=== PATIENT | male | born 1980 | race Caucasian/White ===

== ENCOUNTER 2020-01-02 14:34 | Emergency (ER) | payer OTHER ==
[~2020-01-02] VITALS: Ht 182.9 cm; Wt 108.9 kg
--- OUTSIDE RECORDS SUMMARY | 2020-01-02 14:36 | XMS REPORT | Summary of Care ---
Author Author [facility] - Health Organization [facility] - Health Address Unknown Phone Unavailable Care Team Providers Care Hand Coremaker Name Role Phone Jose Francisco Harper MD PCP Reason for Visit * Reason Comments Refill Request Encounter Details Care Team Description Date Type Department Jose Francisco Harper MD [address] [place] [address] [phone] Refill Request 10/03/[address] [phone] Allergies No Known Allergiesdocumented as of this encounter (statuses as of 10/04/2019) Medications End Date Status Medication Sig Dispensed Refills Start Date Active anastrozole 1 mg tablet TK 09/12 T PO 2 3 TIMES A WK 7 Active cadexomer iodine 0.9 % Apply to 40 g 1 gelIndications: Skin wound daily 8 ulcer of left foot, limited to breakdown of skin, Callus of foot, Pain of left lower extremity Active triamcinolone acetonide Apply to 30 g 0 0.1 % creamIndications: area(s) 2 8 Poison connor dermatitis (two) times daily. Active mupirocin 2 % Apply to 30 g 0 ointmentIndications: area(s) 3 8 Poison connor dermatitis (three) times daily. Active Blood-Glucose Meter Use as 1 Kit 0 (BLOOD GLUCOSE directed 8 MONITORING) KitIndications: Type 2 diabetes mellitus without complication, without long-term current use of insulin Active hydrOXYzine 25 mg Take 1 tablet 5 tablet 0 tabletIndications: Social by mouth 8 anxiety disorder every 6 (six) hours as needed for Anxiety. Active propranolol 20 mg Take 1 tablet 180 tablet 0 tabletIndications: by mouth 2 9 Hypertension, unspecified (two) times type daily. Active metFORMIN 1,000 mg Take 1 tablet 180 tablet 1 tabletIndications: Type 2 by mouth 2 9 diabetes mellitus without (two) times complication, without daily with long-term current use of meals. insulin Active losartan 50 mg Take 0.5 90 tablet 1 tabletIndications: tablets by 9 Hypertension, unspecified mouth 2 (two) type times daily. Active empagliflozin-linagliptin Take 1 tablet 90 tablet 1 (GLYXAMBI) 25-5 mg by mouth 0 TabIndications: Type 2 daily. diabetes mellitus without complication, without long-term current use of insulin 10/04/2019 Discontinued (Reorder) empagliflozin-linagliptin Take 1 tablet 90 tablet 1 (GLYXAMBI) 25-5 mg by mouth 9 TabIndications: Type 2 daily. diabetes mellitus without complication, without long-term current use of insulin documented as of this encounter (statuses as of 10/04/2019) Active Problems Problem Noted Date Tachycardia 06/15/2018 Type 2 diabetes mellitus without complication, without long-term current 06/15/2018 use of insulin Hypertension, unspecified type 06/15/2018 Social anxiety disorder 06/15/2018 documented as of this encounter (statuses as of 10/04/2019) Social History Date Tobacco Use Types Packs/Day Years Used Never Smoker Smokeless Tobacco: Snuff Current User Drinks/Week oz/Week Comments Alcohol Use No Sex Assigned at Date Recorded Not on file Industry Job Start Date Occupation Not on file Not on file Not on file Travel End Travel History Travel Start No recent travel history available. documented as of this encounter Last Filed Vital Signs Not on filedocumented in this encounter Plan of Treatment Health Maintenance Due Date Last Done Comments VARICELLA VACCINES (1 of 1982 2 - 2-dose childhood series) PNEUMOCOCCAL 0-64 YEARS 1987 COMBINED SERIES (1 of 1 - PPSV23) URINE MICROALBUMIN 1991 DTaP,Tdap,and Td Vaccines 1992 (1 - Tdap) LDL-C 12/04/2018 12/04/2017 EYE EXAM 01/30/2019 01/30/2018 FOOT EXAM 03/02/2019 03/02/2018, 03/02/2018, 03/02/2018 HgA1C 03/27/2019 09/27/2018, 12/04/2017 INFLUENZA VACCINE (#1) 2019 CREATININE (SERUM) 04/12/2020 04/12/2019, 03/02/2018 documented as of this encounter Results Not on filedocumented in this encounter Visit Diagnoses Diagnosis Type 2 diabetes mellitus without complication, without long-term current use of insulin documented in this encounter Insurance Type Payer Benefit Subscriber ID Effective Phone Address Plan / Dates Group HMO/PPO/POS CIGDARLENE FREY II [id number] 2016-P resent documented as of this encounter
--- OUTSIDE RECORDS SUMMARY | 2020-01-02 14:36 | XMS REPORT | Encounter Summary ---
Author Organization Unknown Address [address] [place] [address] Phone [phone] Care Team Providers Care Night Worker Name Role Phone Dr. Cr Sam 3 [phone] Reason for Visit other - see typed reason; Telemedicine Visit Instructions 1. Acute stress disorder Discussion Note: None recorded. Patient educational handouts: No information available. Plan of Care Reminders Provider Appointments None recorded. Lab None recorded. Referral None recorded. Procedures None recorded. Surgeries None recorded. Imaging None recorded. Medications Name Start Date alprazolam 0.5 mg tablet Take 1 tablet 3 times a day by oral route as needed. buspirone 10 mg tablet Take 1 tablet twice a day by oral route. Glyxambi 25 mg-5 mg tablet Take 1 tablet every day by oral route for 90 days. losartan 50 mg tablet Take 0.5 tablets twice a day by oral route for 90 days. metformin 1,000 mg tablet Take 1 tablet twice a day by oral route for 90 days. propranolol 20 mg tablet Take 1 tablet twice a day by oral route for 90 days. Medications Administered None recorded. Vitals Height 6 ft Results Lab Results None recorded. Allergies Code Code System Name Reaction Severity Status Onset NKDA Problems Name Status Onset Date Source Diabetes Mellitus Active 09/12/2019 Hypertensive Disorder Active 09/12/2019 Procedures Date Name Performed by 09/11/2007 Reconstructive Surgery Information not available 09/11/2004 Reconstructive Surgery Information not available Vaccine List Vaccine Type Tdap 12/27/2016 Social History Tobacco Smoking Status Unknown If Ever Smoked Past Encounters 12/27/2019 Acute Stress Disorder Cr Sam, DO: [address], [address], [place] [address], Ph. 12/19/2019 Diabetes Mellitus; Acute Stress Disorder Cr Sam, DO: [address], [address], [place] [address], Ph. History of Present Illness Anxiety Disorder Reported By: Patient HPI: Onset/Timin weeks. Severity: moderate; Improved. Context: life stressors; Multiple stressors related to COVID19, work, family. Anxiety improved with medication. Modifying Factors: psychotropic medication. Associated Symptoms: no fatigue, no muscle tension, no muscle aches, no restlessness, no sleep disturbances, difficulty concentrating, difficulty controlling worry, excess anxiety Note:I confirm that I received verbal consent from the patient for the virtual visit.<div>
<div>Attempted to use video capabilities to interact with patient, but unable either due to patient lacking an appropriate device or technical difficulties. Interaction was via audio phone only.</div></div> Review of Systems Comprehensive General Adult ROS Reported By: Patient Constitutional: Constitutional: no fever Cardiovascular: Cardiovascular: no chest pain, no shortness of breath when walking Respiratory: Respiratory: no cough, no wheezing, no shortness of breath Gastrointestinal: Gastrointestinal: no abdominal pain, no nausea, no vomiting, no constipation, no diarrhea Musculoskeletal: Musculoskeletal: no muscle aches, no muscle weakness, no arthralgias/joint pain, no swelling in the extremities Psychiatric: Psych: no depression, no sleep disturbances, anxiety Physical Exam Telemedicine/Virtual Visit Reported By: Patient
--- OUTSIDE RECORDS SUMMARY | 2020-01-02 14:36 | XMS REPORT | Summary of Care ---
Author Author [facility] - Health Organization [facility] - Health Address Unknown Phone Unavailable Care Team Providers Care Policy Writer Sales Name Role Phone Jose Francisco Harper MD PCP Reason for Visit * Reason Comments Refill Request Encounter Details Care Team Description Date Type Department Jose Francisco Harper MD [address] [place] [phone] Refill Request 10/03/[address] [phone] Allergies No Known Allergiesdocumented as [...] / Dates Group HMO/PPO/POS CIGDARLENE FREY II [id number] 2016-P resent documented as of this encounter
--- OUTSIDE RECORDS SUMMARY | 2020-01-02 14:36 | XMS REPORT | Summary of Care ---
Author Author [facility] - Health Organization [facility] - Health Address Unknown Phone Unavailable Care Team Providers Care Seismology Technical Officer Name Role Phone PCP Unavailable Reason for Visit * Reason Comments Refill Request Encounter Details Care Team Description Date Type Department Jose Francisco Harper MD [address] [place] [phone] Refill Request 04/09/[address] [phone] Allergies No Known Allergiesdocumented as of this encounter (statuses as of 04/12/2019) Medications End Date Status Medication Sig Dispensed [...] (six) hours as needed for Anxiety. Active metFORMIN 1,000 mg Take 1 tablet 180 tablet 1 tabletIndications: Type 2 by mouth 2 9 diabetes mellitus without (two) times complication, without daily with long-term current use of meals. insulin Active propranolol 20 mg Take 1 tablet 180 tablet 1 tabletIndications: by mouth 2 9 Hypertension, unspecified (two) times type daily. Active losartan 50 mg Take 0.5 90 tablet 1 tabletIndications: tablets by 9 Hypertension, unspecified mouth 2 (two) type times daily. Active empagliflozin-linagliptin Take 1 tablet 90 tablet 1 (GLYXAMBI) 25-5 mg by mouth 9 TabIndications: Type 2 daily. diabetes mellitus without complication, without long-term current use of insulin 04/12/2019 Discontinued empagliflozin-linagliptin Take 1 tablet 90 tablet 1 (GLYXAMBI) 25-5 mg by mouth 9 TabIndications: Type 2 daily. diabetes mellitus without complication, without long-term current use of insulin documented as of this encounter (statuses as of 04/12/2019) Active Problems Problem Noted Date Tachycardia 06/15/2018 Type 2 diabetes mellitus without complication, without long-term current 06/15/2018 use of insulin Hypertension, unspecified type 06/15/2018 Social anxiety disorder 06/15/2018 documented as of this encounter (statuses as of 04/12/2019) Social History Date Tobacco Use Types Packs/Day [...] filedocumented in this encounter Plan of Treatment Order Schedule Name Type Priority Associated Diagnoses 1 Occurrences starting 04/12/2019 until 05/13/2019 POCT HEMOGLOBIN A1C TEST LAB Routine Type 2 diabetes mellitus without complication, without long-term current use of insulin Health Maintenance Due Date Last Done Comments PNEUMOCOCCAL 0-64 YEARS 1987 COMBINED SERIES (1 of 1 - PPSV23) URINE MICROALBUMIN 1991 VARICELLA VACCINES (1 of 1994 2 - 13+ 2-dose series) DTaP,Tdap,and Td Vaccines 2000 (1 - Tdap) LDL-C 12/04/2018 12/04/2017 EYE EXAM 01/30/2019 01/30/2018 CREATININE (SERUM) 03/02/2019 03/02/2018 HgA1C 03/27/2019 09/27/2018, 12/04/2017 INFLUENZA VACCINE 05/12/2019 FOOT EXAM 06/04/2019 06/04/2018, 06/04/2018, 03/02/2018, Additional history exists documented as of this encounter Results Not on filedocumented in this encounter Visit Diagnoses Diagnosis Type 2 diabetes mellitus without complication, without long-term current use of insulin documented in this encounter Insurance Type Payer Benefit Subscriber ID Effective Phone Address Plan / Dates Group HMO/PPO/POS SHANTE FREY II [id number] 2016-P resent documented as of this encounter
--- OUTSIDE RECORDS SUMMARY | 2020-01-02 14:36 | XMS REPORT | Summary of Care ---
Author Author [facility] - Health Organization [facility] - Health Address Unknown Phone Unavailable Care Team Providers Care Route Driver Coin Machines Name Role Phone Jose Francisco Harper MD PCP Reason for Visit * Reason Comments Refill Request Encounter Details Care Team Description Date Type Department Jose Francisco Harper MD [address] [place] [phone] Refill Request 05/21/[address] [phone] Allergies No Known Allergiesdocumented as of this encounter (statuses as of 05/21/2019) Medications End Date Status Medication Sig Dispensed [...] without long-term current use of insulin Active propranolol 20 mg Take 1 tablet 180 tablet 0 tabletIndications: by mouth 2 9 Hypertension, unspecified (two) times type daily. 05/21/2019 Discontinued propranolol 20 mg Take 1 tablet 30 tablet 0 tabletIndications: by mouth 2 9 Hypertension, unspecified (two) times type daily. documented as of this encounter (statuses as of 05/21/2019) Active Problems Problem Noted Date Tachycardia 06/15/2018 Type 2 diabetes mellitus without complication, without long-term current 06/15/2018 use of insulin Hypertension, unspecified type 06/15/2018 Social anxiety disorder 06/15/2018 documented as of this encounter (statuses as of 05/21/2019) Social History Date Tobacco Use Types Packs/Day [...] LDL-C 12/04/2018 12/04/2017 EYE EXAM 01/30/2019 01/30/2018 HgA1C 03/27/2019 09/27/2018, 12/04/2017 INFLUENZA VACCINE (#1) 2019 FOOT EXAM 06/04/2019 06/04/2018, 06/04/2018, 03/02/2018, Additional history exists CREATININE (SERUM) 04/12/2020 04/12/2019, 03/02/2018 documented as of this encounter Results Not on filedocumented in this encounter Visit Diagnoses Diagnosis Hypertension, unspecified type documented in this encounter Insurance Type Payer Benefit Subscriber ID Effective Phone Address Plan / Dates Group HMO/PPO/POS SHANTE FREY II [id number] 2016-P resent documented as of this encounter
--- OUTSIDE RECORDS SUMMARY | 2020-01-02 14:36 | XMS REPORT | Summary of Care ---
Author Author [facility] - Health Organization [facility] - Health Address Unknown Phone Unavailable Care Team Providers Care Tray Drier Operator Name Role Phone Jose Francisco Harper MD PCP Reason for Visit * Reason Comments Refill Request Encounter Details Care Team Description Date Type Department Jose Francisco Harper MD [address] [place] [phone] Refill Request 04/23/[address] [phone] Allergies No Known Allergiesdocumented as of this encounter (statuses as of 04/24/2019) Medications End Date Status Medication Sig Dispensed [...] Active propranolol 20 mg Take 1 tablet 30 tablet 0 tabletIndications: by mouth 2 9 Hypertension, unspecified (two) times type daily. 04/24/2019 Discontinued propranolol 20 mg Take 1 tablet 180 tablet 1 tabletIndications: by mouth 2 9 Hypertension, unspecified (two) times type daily. documented as of this encounter (statuses as of 04/24/2019) Active Problems Problem Noted Date Tachycardia 06/15/2018 Type 2 diabetes mellitus without complication, without long-term current 06/15/2018 use of insulin Hypertension, unspecified type 06/15/2018 Social anxiety disorder 06/15/2018 documented as of this encounter (statuses as of 04/24/2019) Social History Date Tobacco Use Types Packs/Day [...] filedocumented in this encounter Plan of Treatment Care Team Description Date Type Specialty Jose Francisco Harper MD [address] [place] [address]. [place] [phone] 04/29/2019 Office Visit Family Medicine Health Maintenance Due Date Last Done Comments PNEUMOCOCCAL 0-64 YEARS 1987 COMBINED SERIES (1 of 1 - PPSV23) URINE MICROALBUMIN 1991 VARICELLA VACCINES (1 of 1994 2 - 13+ 2-dose series) DTaP,Tdap,and Td Vaccines 2000 (1 - Tdap) LDL-C 12/04/2018 12/04/2017 EYE EXAM 01/30/2019 01/30/2018 HgA1C 03/27/2019 09/27/2018, 12/04/2017 INFLUENZA VACCINE 05/12/2019 FOOT EXAM 06/04/2019 06/04/2018, 06/04/2018, 03/02/2018, Additional history exists CREATININE (SERUM) 04/12/2020 04/12/2019, 03/02/2018 documented as of this encounter Results Not on filedocumented in this encounter Visit Diagnoses Diagnosis Hypertension, unspecified type documented in this encounter Insurance Type Payer Benefit Subscriber ID Effective Phone Address Plan / Dates Group HMO/PPO/POS SHANTE FREY II [id number] 2016-P resent documented as of this encounter
--- OUTSIDE RECORDS SUMMARY | 2020-01-02 14:36 | XMS REPORT | Summary of Care ---
Author Author [facility] - Health Organization [facility] - Health Address Unknown Phone Unavailable Care Team Providers Care Compliance Examiner Name Role Phone PCP Unavailable Reason for Visit * Reason Comments Refill Request Encounter Details Care Team Description Date Type Department Jose Francisco Harper MD [address] [place] [phone] Refill Request 04/09/[address] [place] [address] [phone] Allergies No Known Allergiesdocumented as [...] / Dates Group HMO/PPO/POS SHANTE FREY II [id number] 2016-P resent documented as of this encounter
--- OUTSIDE RECORDS SUMMARY | 2020-01-02 14:36 | XMS REPORT | Summary of Care ---
Author Author [facility] - Health Organization [facility] - Health Address Unknown Phone Unavailable Care Team Providers Care Computer Game Designer Name Role Phone PCP Unavailable Reason for Visit * Reason Comments Erroneous duplicated encounter-disregard Encounter Details Care Team Description Date Type Department Jose Francisco Harper MD [address] [place] [phone] Erroneous encounter-disregard (duplicated) 04/10/2019 Telephone [facility]- [address] [phone] Allergies No Known Allergiesdocumented as of this encounter (statuses as of 04/10/2019) Medications End Date Status Medication Sig Dispensed [...] (six) hours as needed for Anxiety. Active empagliflozin-linagliptin Take 1 tablet 90 tablet 1 (GLYXAMBI) 25-5 mg by mouth 9 TabIndications: Type 2 daily. diabetes mellitus without complication, without long-term current use of insulin Active metFORMIN 1,000 mg Take 1 tablet [...] unspecified mouth 2 (two) type times daily. documented as of this encounter (statuses as of 04/10/2019) Active Problems Problem Noted Date Tachycardia 06/15/2018 Type 2 diabetes mellitus without complication, without long-term current 06/15/2018 use of insulin Hypertension, unspecified type 06/15/2018 Social anxiety disorder 06/15/2018 documented as of this encounter (statuses as of 04/10/2019) Social History Date Tobacco Use Types Packs/Day [...] Results Not on filedocumented in this encounter Insurance Type Payer Benefit Subscriber ID Effective Phone Address Plan / Dates Group HMO/PPO/POS SHANTE FREY II [id number] 2016-P resent documented as of this encounter
--- OUTSIDE RECORDS SUMMARY | 2020-01-02 14:36 | XMS REPORT ---
Author Author [facility] Address Unknown Phone Unavailable Care Team Providers Care Occupational Nurse Name Role Phone Unavailable Unavailable Problems Condition Name Condition Details Condition Category Status Onset Date Resolution Date Last Treatment Date Treating Clinician Comments Diabetes mellitus Diabetes Mellitus Problem Active 2019-09-12 00:00:00 Hypertensive disorder Hypertensive Disorder Problem Active 2019-09-12 00:00:00 Allergies, Adverse Reactions, Alerts This patient has no known allergies or adverse reactions. Medications Ordered Medication Name Filled Medication Name Start Date Stop Date Current Medication? Ordering Clinician Indication Dosage Frequency Signature (SIG) Comments Components alprazolam 0.5 mg tablet Take 1 tablet 3 times a day by oral route as needed. alprazolam 0.5 mg tablet Take 1 tablet 3 times a day by oral route as needed. No alprazolam 0.5 mg tablet Take 1 tablet 3 times a day by oral route as needed. buspirone 10 mg tablet Take 1 tablet twice a day by oral route. buspirone 10 mg tablet Take 1 tablet twice a day by oral route. No buspirone 10 mg tablet Take 1 tablet twice a day by oral route. Glyxambi 25 mg-5 mg tablet Take 1 tablet every day by oral route for 90 days. Glyxambi 25 mg-5 mg tablet Take 1 tablet every day by oral route for 90 days. No Glyxambi 25 mg-5 mg tablet Take 1 tablet every day by oral route for 90 days. losartan 50 mg tablet Take 0.5 tablets twice a day by oral route for 90 days. losartan 50 mg tablet Take 0.5 tablets twice a day by oral route for 90 days. No losartan 50 mg tablet Take 0.5 tablets twice a day by oral route for 90 days. metformin 1,000 mg tablet Take 1 tablet twice a day by oral route for 90 days. metformin 1,000 mg tablet Take 1 tablet twice a day by oral route for 90 days. No metformin 1,000 mg tablet Take 1 tablet twice a day by oral route for 90 days. propranolol 20 mg tablet Take 1 tablet twice a day by oral route for 90 days. propranolol 20 mg tablet Take 1 tablet twice a day by oral route for 90 days. No propranolol 20 mg tablet Take 1 tablet twice a day by oral route for 90 days. Immunizations Ordered Immunization Name Filled Immunization Name Date Status Comments Tdap Tdap 2016-12-27 00:00:00 Completed Vital Signs Vital Name Observation Time Observation Value Comments Height 2019-12-27 00:00:00 72 [in_i] Height 2019-12-19 00:00:00 72 [in_i] BP Diastolic 2019-09-12 00:00:00 92 mm[Hg] Height 2019-09-12 00:00:00 72 [in_i] BP Systolic 2019-09-12 00:00:00 142 mm[Hg] Body Weight 2019-09-12 00:00:00 245 [lb_av] Procedures and Interventions Procedure Date / Time Performed Performing Clinician Reconstructive Surgery 2007-09-11 00:00:00 Reconstructive Surgery 2004-09-11 00:00:00 Encounters Start Date/Time End Date/Time Encounter Type Admission Type Attending [facility] Facility Care Department Encounter ID 2019-12-27 00:00:00 2019-12-27 00:00:00 Cr Sam, DO: [address], [address] [address], Ph. [facility] [place] ([facility] [id number] 2019-12-19 00:00:00 2019-12-19 00:00:00 Cr Sam, DO: [address], [address], [place] [address], Ph. [facility] ([facility]) [id number] 2019-09-12 00:00:00 2019-09-12 00:00:00 Cr Sam, DO: [facility] [place] [address], Ph. [facility] [id number]
--- OUTSIDE RECORDS SUMMARY | 2020-01-02 14:36 | XMS REPORT | Encounter Summary ---
Author Organization Unknown Address [address] [place] [address] Phone [phone] Care Team Providers Care Perforating Machine Operator Name Role Phone Dr. Cr Sam 3 [phone] Reason for Visit other - see typed reason; Telemedicine Visit Instructions 1. Acute stress disorder Discussion Note: None recorded. Patient educational handouts: No information available. Plan of Care Reminders Provider Appointments Return to Office on or around 01/26/2020 Cr Sam DO Lab None recorded. Referral None recorded. Procedures [...] DO: [address], [address], [place] [address], Ph. 12/19/2019 Diabetes Mellitus; Acute Stress Disorder Cr Sam, DO: [address], [address], [place] [address], Ph. History of Present Illness Anxiety Disorder [...]
--- OUTSIDE RECORDS SUMMARY | 2020-01-02 14:36 | XMS REPORT | Encounter Summary ---
Author Organization Unknown Address [address] [place] [address] Phone [phone] Care Team Providers Care University Professor Name Role Phone Dr. Cr Sam 3 [phone] Reason for Visit Hypertensive disorder; Diabetes mellitus Instructions 1. Hypertensive disorder propranolol 20 mg tablet losartan 50 mg tablet 2. Diabetes mellitus metformin 1,000 mg tablet HbA1c (hemoglobin A1c), blood microalbumin/creatinine, mass ratio, urine CMP, serum or plasma 3. Body mass index 30+ - obesity body mass index: care instructions learning about healthy weight 4. Influenza vaccination declined Discussion Note: None recorded. Plan of Care Reminders Provider Appointments None recorded. Lab HbA1C (Hemoglobin a1C), Blood 09/12/2019 [facility] Microalbumin/creatinine, Mass Ratio, Urine 09/12/2019 [facility] CMP, Serum or Plasma 09/12/2019 [facility] Referral None recorded. Procedures None recorded. Surgeries None recorded. Imaging None recorded. Medications Name Start Date Glyxambi 25 mg-5 mg tablet Take 1 [...] days. Medications Administered None recorded. Vitals Height Weight BMI Blood Pressure 6 ft 245 lbs 33.2 kg/m2 (1) 142/92 mm[Hg] (2) 156/98 mm[Hg] Results Lab Results None recorded. Allergies Code Code System Name Reaction Severity Status Onset NKDA Problems Name Status Onset Date Source Diabetes Mellitus Active 09/12/2019 Hypertensive Disorder Active 09/12/2019 Procedures Date Name Performed by 09/11/2007 Reconstructive Surgery Information not available 09/11/2004 Reconstructive Surgery Information not available Vaccine List None recorded. Social History Tobacco Smoking Status Never Smoker Past Encounters 09/12/2019 Hypertensive Disorder; Diabetes Mellitus; Body Mass Index 30+ - Obesity; Influenza Vaccination Declined Cr Sam, DO: [address] [place] [address], Ph. History of Present Illness Note:Patient presents to the clinic today to establish care with the following concerns: <div> <div>1) HTN
- current med(s): Losartan 25mg BID
- medication compliance: {{daily*|somewhat daily|none}}
- home BP range: {{& gt;200|180s|170s|160s|150s|140s|130s|120s|110s*|100s|90s|80s|70s}} / {{& gt;200|180s|170s|160s|150s|140s|130s|120s|110s|100s|90s|80s|70s*}}
- adverse reactions: {{yes|no*}}
- diet and exercise: {{yes|no*}}
- Denies: {{HAs, CP, SOB, leg swelling #|HAs|CP|SOB|acute visual changes|leg swelling|none}}
- Endorses: {{HAs|CP|SOB|acute visual changes|leg swelling|none*}}
<div> <div> 2) T2DM
- last A1c: (date)
- current med(s): Metformin, Glyxambi
- medication compliance: {{daily*|somewhat daily|none}}
- adverse reactions: {{no*|yes}}
- home bg range: AM {{& gt;200|180s|170s|160s|150s|140s|130s|120s|110s|100s|90s|80s|70s}}
- diet and exercise: {{no*|yes}}
- Denies: {{CP, acute visual changes, polyuria#|polyuria|polydipsia|hypoglycemic episodes|acute visual changes|CP}}
- Endorses: {{polyuria|polydipsia*|hypoglycemic episodes|acute visual changes|CP}}
- Prescribed ARB & Statin: {{ARB only#|yes|no}}
- Eye Exam within last year: {{yes|no*}}
- Diabetic Foot Exam within last year: {{yes|no*}}

<div>
</div></div></div></div></div> Review of Systems Comprehensive General Adult ROS [...] arthralgias/joint pain, no swelling in the extremities Physical Exam General Adult Exam (male) Reported By: Patient Constitutional: General Appearance: healthy-appearing, well-developed, obese. Level of Distress: NAD. Ambulation: ambulating normally Cardiovascular: Heart Auscultation: RRR, normal S1, normal S2, no murmurs, no rubs, no gallops Abdomen: Bowel Sounds: normal. Inspection and Palpation: soft, non-distended, no tenderness, no guarding Musculoskeletal:: Motor Strength and Tone: normal, normal tone. Joints, Bones, and Muscles: normal movement of all extremities. Extremities: no edema"
--- OUTSIDE RECORDS SUMMARY | 2020-01-02 14:36 | XMS REPORT | Summary of Care ---
Author Author [facility] - Health Organization [facility] - Health Address Unknown Phone Unavailable Care Team Providers Care Avid Editor Name Role Phone Jose Francisco Harper MD PCP Reason for Visit * Reason Comments Refill Request Encounter Details Care Team Description Date Type Department Jose Francisco Harper MD [address] [place] [address] [phone] Refill Request 05/21/[address] [phone] Allergies No Known Allergiesdocumented as of this encounter (statuses as of 05/22/2019) Medications End Date Status Medication Sig Dispensed [...] as of this encounter (statuses as of 05/22/2019) Active Problems Problem Noted Date Tachycardia 06/15/2018 Type 2 diabetes mellitus without complication, without long-term current 06/15/2018 use of insulin Hypertension, unspecified type 06/15/2018 Social anxiety disorder 06/15/2018 documented as of this encounter (statuses as of 05/22/2019) Social History Date Tobacco Use Types Packs/Day [...] / Dates Group HMO/PPO/POS SHANTE FREY II [id number] 2016-P resent documented as of this encounter
--- OUTSIDE RECORDS SUMMARY | 2020-01-02 14:36 | XMS REPORT | Summary of Care ---
Author Author [facility] - Health Organization [facility] - Health Address Unknown Phone Unavailable Care Team Providers Care Clinical Social Worker Name Role Phone Jose Francisco Harper MD PCP Reason for Visit * Reason Comments Refill Request Encounter Details Care Team Description Date Type Department Jose Francisco Harper MD [address] [place] [address] [phone] Refill Request 04/15/[address] [phone] Allergies No Known Allergiesdocumented as of this encounter (statuses as of 04/15/2019) Medications End Date Status Medication Sig Dispensed [...] as of this encounter (statuses as of 04/15/2019) Active Problems Problem Noted Date Tachycardia 06/15/2018 Type 2 diabetes mellitus without complication, without long-term current 06/15/2018 use of insulin Hypertension, unspecified type 06/15/2018 Social anxiety disorder 06/15/2018 documented as of this encounter (statuses as of 04/15/2019) Social History Date Tobacco Use Types Packs/Day [...] Date Type Specialty Jose Francisco Harper MD [address] [place] [phone] 04/29/2019 Office Visit Family Medicine Health Maintenance [...] encounter Visit Diagnoses Diagnosis Hypertension, unspecified type Type 2 diabetes mellitus without complication, without long-term current use of insulin documented in this encounter Insurance Type Payer Benefit Subscriber ID Effective Phone Address Plan / Dates Group HMO/PPO/POS CIGNA CIGNA II [id number] 2016-P resent documented as of this encounter
--- OUTSIDE RECORDS SUMMARY | 2020-01-02 14:36 | XMS REPORT | Summary of Care ---
Author Author [facility] - Health Organization [facility] - Health Address Unknown Phone Unavailable Care Team Providers Care Entertainment Production Professional Name Role Phone Jose Francisco Harper MD PCP Reason for Visit * Reason Comments LAB Encounter Details Care Team Description Date Type Department Rodger Vu MD [address] [facility] [id number] [place] [address] [phone] Only, [facility] Lab Hypertension, unspecified type; Type 2 diabetes mellitus without complication, without long-term current use of insulin 04/12/2019 Nurse Visit [facility]- [address] [place] [phone] Allergies No Known Allergiesdocumented as of [...] Signs Not on filedocumented in this encounter Progress Notes * Viola Tobar MA - 04/12/2019 3:20 PM CDT 38 year old male has been identified by and name. The patient has signed th e informed consent to have blood drawn Previous/Current Encounter Diagnosis: i10 Venipuncture performed by clean technique on the right anticubitus. Slight pres sure and a band aid were applied to the venipuncture site. The patient tolerate d the procedure well. The collected blood sample(s) were properly labeled and [facility]. Pt chose to only have CMP drawn due to financial documented in this encounter Plan of Treatment Care Team Description Date Type Specialty Jose Francisco Harper MD [address] [place] [address] [phone] 04/29/2019 Office Visit Family Medicine Date/Time Name Type Priority Associated Diagnoses 04/12/2019 3:28 PM CDT COMP. METABOLIC PANEL LAB Routine Hypertension, unspecified (89208) type Type 2 diabetes mellitus without complication, [...] / Dates Group HMO/PPO/POS CIGNA CIGNA II [id number] 2016-P resent documented as of this encounter
--- OUTSIDE RECORDS SUMMARY | 2020-01-02 14:36 | XMS REPORT | Encounter Summary ---
Author Organization Unknown Address [address] [place] [address] Phone [phone] Care Team Providers Care Landscape Foreman Name Role Phone Dr. Cr Sam 3 [phone] Reason for Visit Diabetes mellitus; heart palpitations; Telemedicine Visit Instructions 1. Diabetes mellitus HbA1c (hemoglobin A1c), blood microalbumin/creatinine, mass ratio, urine CMP, serum or plasma lipid panel, serum 2. Acute stress disorder TSH, serum or plasma alprazolam 0.5 mg tablet buspirone 10 mg tablet Discussion Note: None recorded. Patient educational handouts: No information available. Plan of Care Reminders Provider Appointments None recorded. Lab HbA1C (Hemoglobin a1C), Blood 12/19/2019 [facility] Laboratory Microalbumin/creatinine, Mass Ratio, Urine 12/19/2019 [facility] CMP, Serum or Plasma 12/19/2019 [facility] Lipid Panel, Serum 12/19/2019 [facility] TSH, Serum or Plasma 12/19/2019 [facility] Referral None recorded. Procedures None recorded. [...] day by oral route for 90 days. tadalafil 10 mg tablet triazolam 0.25 mg tablet Medications Administered None recorded. Vitals Height 6 ft Results Lab Results None recorded. Allergies Code Code System Name Reaction Severity Status Onset NKDA Problems Name Status Onset Date Source Diabetes Mellitus Active 09/12/2019 Hypertensive Disorder Active 09/12/2019 Procedures Date Name Performed by 09/11/2007 Reconstructive Surgery Information not available 09/11/2004 Reconstructive Surgery Information not available Vaccine List None recorded. Social History Tobacco Smoking Status Unknown If Ever Smoked Past Encounters 12/19/2019 Diabetes Mellitus; Acute Stress Disorder Cr Sam, DO: [address] [facility] , [address], [place] [address], Ph. History of Present Illness Diabetes Reported By: Patient HPI: Review finger sticks: monitoring glucose weekly, normal range of home blood sugars (in the low 100s). Duration: new onset. Control: usually well controlled, improved since last visit, treated with diet and oral medications, hemoglobin A1C has been , BP usually runs 135-140/85-90, , goal is 135-140/85-90, ; tightened [facility] clinic. Compliance: compliant with medications, compliant with follow-up visits, compliant with diet, compliant with home glucose monitoring, no side effects from medications; Glyxambi: normal diarrea. Self Care: seeing eye doctor regularly, checking feet regularly, not taking asp irin daily. Associated Symptoms: no weight gain, no confusion, no increased thirst, no increased appetite, no blurred vision, weight loss (50 lbs), dizziness, sweats, headaches, increased urination, numbness of feet, calluses on feet; bilateral calluses Anxiety Disorder Reported By: Patient HPI: Onset/Timin weeks. Severity: severe, 10/10. Context: life stressors. Modifying Factors: exercise; walking helps. Associated Symptoms: difficulty concentrating, difficulty controlling worry, excess anxiety, excessive sweating, hot flashes, palpitations, shortness of breath, nausea, fatigue, high irritability, muscle tension, muscle aches, trembling, headaches, restlessness, sleep disturbances Notes: Muscle tension and aches lower neck upper back Note:I confirm that I received verbal consent from the patient for the virtual visit. Review of Systems Comprehensive General Adult ROS [...] the extremities Psychiatric: Psych: no depression, no suicidal thoughts, sleep disturbances, anxiety Physical Exam Telemedicine/Virtual Visit Reported By: Patient Constitutional: General Appearance: healthy-appearing, well-developed. Level of Distress: NAD. Ambulation: ambulating normally Psychiatric: Insight: good judgement. Mental Status: active and alert, anxious. Orientation: to time, to place, to person. Memory: recent memory normal, remote memory normal Head: Head: normocephalic, atraumatic Eyes: Lids and Conjunctivae: non-injected, no discharge, no pallor. EOM: EOMI. Sclerae: non-icteric ENMT: Ears: no lesions on external ear. Hearing: grossly normal. Nose: no lesions on external nose. Lips, Teeth, and Gums: no mouth or lip ulcers. Oropharynx: moist mucous membranes Neck: Neck: FROM Lungs: Respiratory effort: no dyspnea Neurologic: Gait and Station: normal gait, normal station. Cranial Nerves: grossly intact. Coordination and Cerebellum: no tremor Skin: Inspection and palpation: no rash, no lesions, no induration, no jaundice. Nails: normal
[2020-01-02] MEDS ORDERED: SODIUM CHLORIDE 0.9% 1000ML 1,000 ML IV STA (15:04)
[2020-01-02 15:05] LABS: BASOPHILS % 0.6 % (0.0-1.0); EOSINOPHILS # (AUTO) 0.1 (0.0-0.4); EOSINOPHILS % 0.7 % (0.0-6.0); HEMATOCRIT 49.2 % (38.2-49.6); HEMOGLOBIN 17.1 g/dL (14.0-18.0); LYMPHOCYTES # (AUTO) 1.6 (1.0-3.2); LYMPHOCYTES % 22.1 % (18.0-39.1); MEAN CORPUSCULAR HEMOGLOBIN 28.8 pg (28-32); MEAN CORPUSCULAR HGB CONC 34.8 g/dL (31-35); MEAN CORPUSCULAR VOLUME 82.8 fL (81-99); MONOCYTES # (AUTO) 0.6 (0.2-0.8); MONOCYTES % 7.6 % (4.4-11.3); NEUTROPHILS % 68.4 % (38.7-80.0); PLATELET COUNT 297 x10e3/uL (140-360); RED BLOOD COUNT 5.94 x10e6/uL (4.3-5.7); RED CELL DISTRIBUTION WIDTH 13.6 % (11.7-14.4)
[2020-01-02] MEDS ORDERED: SODIUM CHLORIDE 0.9% 1000ML 1,000 ML IV SCH (15:15)
[2020-01-02 15:27] LABS: ALANINE AMINOTRANSFERASE 25 IU/L (0-55); ALBUMIN 4.4 g/dL (3.5-5.0); ALBUMIN/GLOBULIN RATIO 1.6 (0.8-2.0); ALKALINE PHOSPHATASE 66 IU/L (40-150); ANION GAP 12.3 mmol/L (8-16); BLOOD UREA NITROGEN 13 mg/dL (7-26); BUN/CREATININE RATIO 11 (6-25); CALCIUM 9.4 mg/dL (8.4-10.2); CARBON DIOXIDE 29 mmol/L (22-29); CHLORIDE 100 mmol/L (98-107); CREATININE, SERUM 1.23 mg/dL (0.72-1.25); EST GLOMERULAR FILTRATION RATE > 60 ML/MIN (60-); GLUCOSE 287 mg/dL (74-118); POTASSIUM 4.3 mmol/L (3.5-5.1); SODIUM 137 mmol/L (136-145)
[2020-01-02] MEDS ORDERED: METFORMIN HCL500 M1 PO (15:45)
[2020-01-02 16:20] LABS: CLARITY,URINE SL CLOUDY (CLEAR); COLOR,URINE YELLOW (YELLOW)
[2020-01-02 16:21] LABS: BILIRUBIN,URINE NEGATIVE (NEGATIVE); EPITHELIAL CELLS,URINE RARE /LPF; KETONES,URINE 1+ (NEGATIVE); LEUKOCYTE ESTERASE ,URINE NEGATIVE (NEGATIVE); NITRITE,URINE NEGATIVE (NEGATIVE); PROTEIN,URINE DIPSTICK NEGATIVE (NEGATIVE); URINE UROBILINOGEN 0.2 mg/dL (0.2 - 1)
[2020-01-02 18:19] VITALS: BP 125/80
== END 2020-01-02 18:20 | disposition home or self-care (01) ==
LOC: ER 14:34
DX: E11.65 Type 2 diabetes mellitus with hyperglycemia (principal); R53.1 Weakness; R42 Dizziness and giddiness
CPT/HCPCS: 36415; 80053; 81001; 85025; 99284; J7030